=== PATIENT | male | born 1960 | race Caucasian/White ===

== ENCOUNTER 2021-12-05 09:56 | Observation (INO) ==
--- NOTE | 2021-11-20 13:41 | Anesthesiology Consultation ---
Date of Service November 20, 2021 Assessment & Plan (1) Encounter for pre-operative examination: Plan Outpatient joint eligibity: Case reviewed by Dr. Batista-Approvedfor outpatient joint pathway. - COVID screening: Per vulnerability assessment analyst on 11/20/2021: Travel screen negative, no known COVID-19 positive contacts or current COVID-19 related symptoms in past 2 weeks. Pt vaccinated. To surgeon's discretion if preop COVID testing needed. Chart Review Chart Review: Acceptable Risk for Surgery and Patient NOT seen in Pre Admission Testing History Surgery Operation Date: 12/05/21 12:45 Proposed Procedures p Left Total Hip Arthroplasty - Speedy Price MD Height/Weight Height: 6 ft 1 in Weight: 111.3 kg Allergies Allergy/AdvReac Type Severity Reaction Status Date / Time Sulfa (Sulfonamide Allergy Mild Rash Verified 07/03/18 07:00 Antibiotics) codeine AdvReac Mild Nausea Verified 10/13/21 11:40 Medications Home Medications Medication Instructions Recorded Confirmed Last Taken albuterol sulfate 90 mcg/actuation 1 puff inhalation Q6H PRN SOB 07/02/18 11/20/21 Unknown aerosol inhaler aspirin 81 mg tablet,delayed 81 mg PO QAM 07/02/18 11/20/21 06/30/18 release (Leonardo Low Dose Aspirin) atorvastatin 40 mg tablet (Lipitor) 40 mg PO HS 07/02/18 11/20/21 07/02/18 19:00 dexlansoprazole 60 mg 60 mg PO QAM 07/02/18 11/20/21 07/03/18 05:00 capsule,biphase delayed release (Dexilant) dorzolamide 22.3 mg-timolol 6.8 1 drp ophthalmic (eye) BID 07/02/18 11/20/21 Unknown mg/mL eye drops lisinopril 10 mg tablet 10 mg PO QPM 07/02/18 11/20/21 07/03/18 05:00 multivitamin 1 tab PO QAM 07/02/18 11/20/21 07/03/18 05:00 terazosin 1 mg capsule 1 mg PO HS 07/02/18 11/20/21 07/02/18 19:00 famotidine 20 mg chewable tablet 20 mg PO QAM 10/13/21 11/20/21 Unknown venlafaxine 75 mg capsule,extended 75 mg PO QAM 10/13/21 11/20/21 Unknown release 24 hr (Effexor XR) vitamins A,C,V-oozy-zkaayd 2,148 2 tab PO UD 10/13/21 11/20/21 Unknown mcg-113 mg-45 mg-17.4 mg tablet (PreserVision AREDS) alprazolam 0.25 mg tablet 0.25 mg PO BID PRN Anxiety 11/20/21 11/20/21 Unknown clobetasol 0.025 % topical cream 1 applic topical AMPM PRN Rash 11/20/21 11/20/21 Unknown latanoprost 0.005 % eye drops 1 drp ophthalmic (eye) HS 11/20/21 11/20/21 Unknown psyllium husk 3.4 gram/5.4 gram 1 tbsp PO QAM 11/20/21 11/20/21 Unknown oral powder (Metamucil) Past Medical History Medical History Anxiety Asthma well controlled, stable per pt-last rescue inhaler use 07/2021 Barretts esophagus Cancer LEFT RENAL CANCER s/p nephrectomy, no chemo or radiation Chronic back pain Degenerative disc disease GERD (gastroesophageal reflux disease) controlled, stable per pt Glaucoma BILATERAL Hiatal hernia History of COVID-19 07/2021 home test- neg- positive body aches, sinus congestion, slight fever- no current issues- no hospitalization Hyperlipidemia Hypertension controlled, stable per pt Pancreatic cyst follows with [facility], MRI surveillance due July 2022 per records Pancreatitis ~5 YEARS AGO Psoriasis Past Family History Family History Grandmother Family hx of colon cancer Past Surgical History Surgical History History of colonoscopy History of esophagogastroduodenoscopy (EGD) History of nasal septoplasty History of nephrectomy ROBOTICALLY REMOVED LEFT KIDNEY; follows w/ [facility]- 07/2021 S/P eye surgery infant and tear duct sx approx 15 yrs ago S/P trigger finger release x 2 R Social History Smoking Status: Never smoker Do You Dip or Chew Tobacco: No Hx Alcohol Use: No Hx Substance Use: No substance use type: does not use Lab Results Anesthesia Preop Results Results Anesthesia Widget: WBC 6.14 K/ul (4.8-10.8) 10/18/21 Hgb 14.1 g/dl (14.0-18.0) 10/18/21 Hct 41.6 % (40.1-51.0) 10/18/21 Plt 153 K/uL (130-400) 10/18/21 Na 139 mmol/L (136-145) 10/18/21 K 3.7 mmol/L (3.5-5.1) 10/18/21 Cl 105 mmol/L (98-107) 10/18/21 CO2 26 mmol/L (21-32) 10/18/21 BUN 16 mg/dl (6-23) 10/18/21 Creat 1.17 mg/dl (0.6-1.4) 10/18/21 Glucose Level 95 mg/dl (70-99(Fasting)) 10/18/21 PT 10.6 Seconds (9.0-12.0) 10/18/21 PTT 25.1 Seconds (21.0-31.0) 10/18/21 INR 1.0 (0.9-1.1) 10/18/21 Blood Type B Positive 10/18/21 Antibody Screen NEGATIVE 10/18/21 Testing Electrocardiogram Date: 10/18/21 NSR, rate 65 bpm Chest X-Ray Date: 10/18/21 There is suggestion of a hiatal hernia. No lines and tubes are seen. The cardiomediastinal silhouette is normal. The lungs are clear. No evidence of pleural effusion or pneumothorax. IMPRESSION: No acute chest disease. Stress Test Date: 05/17/15 Dobutamine MPHR 106% Negative for inducible ischemia EF 60-65% Grade I diastolic dysfunction No significant valvular pathology
--- NOTE | 2021-12-02 13:37 | History and Physical Report ---
DATE OF ADMISSION: 12/05/2021 CHIEF COMPLAINT: Persistent left hip pain and discomfort. HISTORY OF PRESENT ILLNESS: A 61-year-old fairly active gentleman who presents for surgical treatment of his left hip. He has about a several-year history of gradually increasing left hip pain and discomfort, which has been managed at [facility]. He had 2 intra-articular injections, the first one helped quite a bit, the last one was less successful. He describes lateral hip pain, groin pain, thigh pain radiating down to his knee. He limps more as the day goes on. He has nighttime pain. He would like to have his hip fixed. PAST MEDICAL HISTORY: 1. Hypertension. 2. Elevated cholesterol. 3. Asthma. 4. Gastroesophageal reflux disease. 5. Hiatal hernia. 6. Moderate obesity with BMI of 34. 7. History of kidney cancer, status post nephrectomy with a single kidney remaining. PAST SURGICAL HISTORY: Includes: 1. Nephrectomy. 2. Eye surgery. 3. Trigger finger surgery. 4. Cataract surgery. ALLERGIES: CODEINE, WHICH CAUSES NAUSEA. ALSO, DESCRIBES ALLERGIES TO BACTRIM. CURRENT MEDICATIONS: Include: 1. Atorvastatin. 2. Dexilant. 3. Timolol eye drops. 4. Trazodone. 5. Lisinopril. 6. Latanoprost. 7. Effexor. SOCIAL HISTORY: Significant for a 61-year-old male. He is . is a nurse. He does not smoke. No alcohol intake. FAMILY HISTORY: Noncontributory. REVIEW OF SYSTEMS: Negative for diabetes. No chest pain or shortness of breath. No history of DVT or PE. He does only have a single kidney due to nephrectomy. PHYSICAL EXAMINATION: GENERAL: Shows a pleasant middle-aged male. Looks to be in pretty good health. HEENT: Benign. NECK: Supple. No lymphadenopathy. LUNGS: Clear to auscultation. HEART: Has a regular rate and rhythm. ABDOMEN: Soft, nontender, nondistended. EXTREMITIES: Grossly neurovascularly intact except as follows: Examination of the left hip reveals the patient walks with a bit of a limp. He may be 0.5 cm short on this side compared to the opposite side. He has got a very stiff hip with internal rotation of maybe 5 degrees at best. Negative straight leg raise. No knee effusion. X-RAYS: X-rays of the left hip were reviewed. It shows advanced left hip arthritis. He has got complete loss of his superior joint space. Not a lot of osteophyte formation. ASSESSMENT: A 61-year-old male with a several-year history of increasing left hip pain and discomfort consistent with advanced arthritis. He has failed conservative measures. He really cannot take non-steroidal anti-inflammatory drugs due to a single kidney. PLAN: We are going to proceed with left total hip replacement. The risks and benefits of this procedure were explained to the patient and include but not limited to DVT, PE, , infection, neurological injury, vascular injury, bleeding problem, pain, limited range of motion, stiffness, fracture, incomplete relief of symptoms, etc. The patient understands and desires to proceed. Informed consent was obtained. We will likely use some Toradol, but we will have to be careful due to his single kidney. He is planning to be discharged to home using [facility] program. Job ID: [id number] [facility]
[~2021-12-05 09:56] MED LIST: ACETAMINOPHEN 500 MG TAB PO SCH; BUPIVACAINE 0.5 % 5 MG/1 ML PF 10ML VIAL ONE; CeleBREX 200 MG CAP PO SCH; FAMOTIDINE 20 MG TAB PO SCH; LR 60ML/HR IV SCH; METOCLOPRAMIDE HCL 10 MG TABLET PO SCH; MIDAZOLAM HCL 1 MG/ML 2ML VIAL ONE; Scopolamine 1 MG TDSY TD SCH; TRANEXAMIC ACID 1,000 MG **IV Pre-op IV SCH; [UNRECOGNIZED DRUG - REMARK] SCH; ceFAZolin 2000MG 2,000 MG/15 ML SYR IV SCH; fentaNYL citrate 100 MCG/2 ML VIAL ONE
[2021-12-05] MEDS ORDERED: LR 500ML BOLUS, THEN 15ML/HR IV SCH (10:30)
--- NOTE | 2021-12-05 10:46 | History & Physical Bridge Note ---
Date of Service December 05, 2021 History & Physical Bridge Note I have examined the patient, reviewed the History & Physical and in the interval since the performance of the History & Physical I have noted the following changes of clinical significance: no changes noted
[2021-12-05] MEDS ORDERED: BUPIVACAINE 0.5 % 5 MG/1 ML MPF 30ML VIAL ONE (12:13)
[2021-12-05] MEDS ORDERED: EPINEPHrine INJ 1 MG/ML AMP ONE (12:14)
[2021-12-05] MEDS ORDERED: LIDOCAINE 2% MPF LOCAL 5 ML VIAL INFIL ONE (12:39)
[2021-12-05] MEDS ORDERED: ONDANSETRON INJ 2 MG/ML 2 ML VIAL ONE (12:39)
[2021-12-05] MEDS ORDERED: PROPOFOL IV EMULSION 10 MG/ML 20 ML VIAL IV ONE ×2 (12:39→13:46)
--- NOTE | 2021-12-05 14:12 | Operative Report ---
PG Post Operative Report Pre & Post Diagnosis Operation Date: 12/05/21 12:45 Pre-Op Diagnosis: Left HIp advanced osteoarthritis Post-Op Diagnosis: Left HIp advanced osteoarthritis I identified the patient and participated in the time-out.: Yes Procedure Operation Date: 12/05/21 12:45 Actual Procedures p Left Total Hip Arthroplasty(Left) - Speedy Price MD Surgeon Speedy Price MD Medical Case Manager Eleuterio De Leon PA-C Estimated Blood Loss 200 Findings Consistent with Post-Op Diagnosis Operative findings real advanced left hip DJD. He had grade 4 [id number] disease of the femoral head and acetabulum. Moderate-sized joint effusion. Some anterior acetabular osteophytes. Specimens Left femoral head sent for pathology Drains None Anesthesia Type Spinal MAC Complications none Disposition Accompanied Patient To Recovery: No Indications Patient is a 61-year-old fairly active gentleman has had several year history of increased left hip pain discomfort gradually progressed over time. He failed conservative measures. X-rays show advanced left hip arthritis. He elected proceed with surgical treatment. Description of Procedure Operative implants consist of: 1 Biomet G7 size 56 mm acetabular shell. 2. [place] hole public relations professional. 3. 6.5 cancellous acetabular screws 1 of 35 mm length 125 mm length. 4. Highly cross-linked polyethylene liner with a 56 mm outer diameter and 36 mm inner diameter. 5. DePuy [place] size 12 KLA femoral stem. 6. +5/36 mm ceramic articular ball. The patient was taken the operating, identified, and placed on the operating table supine position protectors were properly padded. IV antibiotics tried by anesthesia team. Spinal anesthetic been employed in the holding area. Sotomayor cath was placed in sterile fashion. Patient then placed in the right lateral decubitus position. An axillary roll was placed. A Stulberg hip positioner was used for positioning. The left hip and leg were then prepped and draped in usual sterile fashion. A posterolateral approach to the left hip was then performed through a curvilinear incision centered over the greater trochanter. Sharp dissection was carried through subcutaneous tissue down below the IT band gluteal fascia the IT band gluteal fascia was incised longitudinally in line with skin incision. The underlying greater bursa was excised. The piriformis and external rotators were tagged and taken off the posterior aspect of the hip joint capsule. Great care was taken throughout the procedure to protect the sciatic nerve at all times. A posterior capsulotomy was then performed leaving a large flap for later repair. Hip was internally rotated and dislocated. Femoral neck osteotomy cut was made with Final Cut 14 mm above the lesser trochanter. Femoral head was removed and sent for pathology. The femur was retracted anteriorly. Attention drawn the acetabulum. The acetabular labrum was excised. The pulmonary fat was excised. Sequential reaming the acetabular was then performed begin with size 45 and progressing up to a 55. I did reamed a little bit with a 56 reamer and then placed a 56 mm G7 acetabular shell in about 40 degrees lateral opening and 20 degrees of anteversion. It was fixed with two 6.5 cancellous acetabular screws. Some small anterior acetabular osteophytes were removed. A trial liner was placed. Attention drawn the femur. The proximal femur was entered with a OpenWhere cutter followed by canal finder. I broached beginning with a size 8 and progressing up to a 12. We got excellent fit and the 12. I did not think I could likely get the 13 down. We then trialed the hip and the +5 articular ball provide full stability and appropriate leg lengths. Of note, this patient did appear to have a long leg on the left than the right preoperatively. We did we could try an minimize any lengthening and even do a little shortening. The hip was then trialed and found to be stable. Attention drawn toward placing the permanent implants. All trial implants were removed. An apex hole public relations professional was placed. Highly cross-linked polyethylene liner was placed. A DePuy size 12 KLA femoral stem was impacted in position. +5/36 mm ceramic articular ball was placed. Hip was located once again found to be stable. Attention drawn toward closing. Wound was irrigated scopes also pulsatile wall solution. I injected locally with 60 cc of half percent Marcaine with epinephrine. Posterior capsule external rotators then repaired through drill holes in the posterior trochanter with #2 Tycron suture. The IT band gluteal fascia then closed #1 PDS suture in a running fashion. Subcutaneous tissue was then closed with 2 layers the deep layer #1 Vicryl suture subcutaneous tissues and 2-0 Dexon suture in a part intact. Skin was closed skin alma rosa. Leg was then cleaned and dried a sterile dressing was Xeroform, 4 x 4's, sterile ABD pad and foam tape was applied. Patient then transferred to the recovery room in stable condition. Patient tolerated procedure well and there were no complications. Eleuterio De Leon, my physician technical services assistant, was present for the entire procedure. His assistance was essential and required for appropriate patient positioning, prepping and draping, surgical exposure, performing the technical details of the operation, placement the implants, closure of the wound, and placement of the sterile bandage. I attest to the content of the Intraoperative Record and any orders documented therein. Any exceptions are noted below.
--- NOTE | 2021-12-05 14:31 | Anesthesiology Progress Note ---
Date of Service December 05, 2021 Anesthesia Post Procedure Vital Signs Vital Signs: Temp Pulse Resp BP Pulse Ox O2 Del Method 12/05/21 14:20 68 14 137/73 95 Room Air 12/05/21 14:10 80 16 128/75 97 Room Air 12/05/21 14:02 36.6 C 83 20 116/70 96 Room Air 12/05/21 10:28 36.8 C 98 H 20 141/94 H 97 Room Air Pain Intensity Left Hip: Pain Intensity: 0 Transfer of Care Handoff Completed per policy Notes Mental Status: alert / awake / arousable Patient Amnestic to Procedure: Yes Nausea / Vomiting: adequately controlled Pain: adequately controlled Airway Patency, RR, SpO2: stable & adequate BP & HR: stable & adequate Hydration State: stable & adequate Neuraxial Anesthesia: was administered and sensory block is resolving Anesthetic Complications: no major complications apparent
--- NOTE | 2021-12-05 14:36 | XRay Report ---
SINGLE VIEW PELVIS; SINGLE VIEW LEFT HIP CLINICAL HISTORY: Postoperative examination. FINDINGS: An AP portable view of the hips and pelvis with a crosstable lateral portable view of the l eft hip are obtained. A bipolar left hip arthroplasty is in near-anatomic alignment. At least 2 sing le cortical lag screws transfix the acetabular cup. No acute fracture is identified. There are expect ed postoperative changes overlying the left hip including skin clips, subcutaneous gas, and soft tiss ue swelling. A Sotomayor catheter is in place. Mild arthritic change is seen in the right hip. IMPRESSION: Expected postoperative findings status post left hip arthroplasty. No acute fracture is s een. ACT 112: Negative or not required by law. Electronically signed by: Mariano Epps M.D. 12/05/2021 2:34 PM
[2021-12-05] MEDS ORDERED: NALOXONE HCL 0.4 MG/1 ML VIAL/CARP IV PRN (16:27)
[2021-12-05] MEDS ORDERED: traMADol HCL 50 MG TABLET PO PRN (16:27)
[2021-12-05] MEDS ORDERED: ALPRAZolam 0.25 MG TABLET PO PRN (16:27)
[2021-12-05] MEDS ORDERED: METOCLOPRAMIDE HCL INJ 5 MG/ML 2 ML VIAL IV PRN (16:27)
[2021-12-05] MEDS ORDERED: ALUMINUM/MAGNESIUM SUSP 30 ML UDC PO PRN (16:27)
[2021-12-05] MEDS ORDERED: HYDROmorphone INJ 1 MG/ML SYRINGE IV PRN (16:27)
[2021-12-05] MEDS ORDERED: diphenhydrAMINE Capsule 25 MG CAP PO PRN (16:27)
[2021-12-05] MEDS ORDERED: bisacodyL 10 MG SUPP PR PRN (16:27)
[2021-12-05] MEDS ORDERED: ONDANSETRON INJ 2 MG/ML 2 ML VIAL IV PRN (16:27)
[2021-12-05] MEDS ORDERED: MAGNESIUM HYDROXIDE SUSP 30 ML UDC PO PRN (16:27)
[2021-12-05] MEDS ORDERED: ALBUTEROL HFA 8 GM INHALER INH PRN (16:27)
[2021-12-05] MEDS: SODIUM CHLORIDE 0.9% 1000ML 1,000 ML IV SCH (17:00)
[2021-12-05] MEDS: ASCORBIC ACID 500 MG TAB PO SCH (18:22)
[2021-12-05] MEDS: KETOROLAC 30 MG/ML VIAL IV SCH ×2 (18:22→23:25)
[2021-12-05] MEDS ORDERED: TRANEXAMIC ACID / 0.7% NACL 1,000 MG/100 ML BAG IV SCH (20:15)
[2021-12-05] MEDS: ceFAZolin 2000MG 2,000 MG/15 ML SYR IV SCH (20:41)
[2021-12-05] MEDS: ASPIRIN 81 MG ECTAB PO SCH (20:44)
[2021-12-05] MEDS: DORZOLAMIDE/TIMOLOL 22.3/6.8MG/ML 10 ML BTL OP SCH (20:46)
[2021-12-05] MEDS: DOCUSATE SODIUM 100 MG CAP PO SCH (20:51)
[2021-12-05] MEDS ORDERED: SENNA 8.6 MG TAB PO SCH (21:00)
[2021-12-05] MEDS ORDERED: DOCUSATE SODIUM/SENNA 50/8.6MG TAB PO SCH (21:00)
[2021-12-05] MEDS ORDERED: lisinopril 10 MG TAB PO SCH (21:00)
[2021-12-05] MEDS ORDERED: FAMOTIDINE 10 MG TABLET PO SCH (21:00)
[2021-12-05] MEDS ORDERED: LATANOPROST 0.005% OP SOLN 2.5 ML BTL OP SCH (21:00)
[2021-12-05] MEDS ORDERED: TERAZOSIN HCL 1 MG CAP PO SCH (21:00)
[2021-12-05] MEDS ORDERED: ATORVASTATIN 40 MG TAB PO SCH (21:00)
[2021-12-05] MEDS: ACETAMINOPHEN 500 MG TAB PO SCH (21:03)
[2021-12-05] MEDS: CLOBETASOL 0.025% SCH (23:25)
[2021-12-06] MEDS: SODIUM CHLORIDE 0.9% 1000ML 1,000 ML IV SCH (03:09)
[2021-12-06] MEDS: KETOROLAC 30 MG/ML VIAL IV SCH ×2 (05:12→11:54)
[2021-12-06] MEDS: ceFAZolin 2000MG 2,000 MG/15 ML SYR IV SCH (05:12)
[2021-12-06] MEDS: ACETAMINOPHEN 500 MG TAB PO SCH ×2 (05:12→13:29)
[2021-12-06 06:32] LABS: BUN Creatinine Ratio 14.4 (10-20); Calcium 8.5 mg/dl (8.5-10.1); Creatinine Clr Calc Pharmacy 85.4 ml/min; Est GFR (African American) 76.2 ml/min; Est GFR (Non-African American) 65.7 ml/min; Potassium 3.8 mmol/L (3.5-5.1)
[2021-12-06 06:36] LABS: Hematocrit (blood only) 39.2 % (40.1-51.0); Hemoglobin 13.4 g/dl (14.0-18.0); Mean Corpuscular Hgb Conc 34.2 g/dL (32.0-36.0); Mean Corpuscular Volume 87.9 fL (80.0-100.0); Mean Platelet Volume 10.4 fL (9.4-12.4); Platelet Count 128 K/uL (130-400); RDW Coefficient of Variation 12.9 % (11.5-14.5); RDW Standard Deviation 41.3 fL (36.4-46.3); Red Blood Count 4.46 M/uL (4.63-6.08); White Blood Count 8.58 K/ul (4.8-10.8)
[2021-12-06 06:52] LABS: Basophils # (auto) 0.02 K/uL (0-0.2); Basophils % (auto) 0.2 %; Eosinophils # (auto) 0.14 K/uL (0-0.50); Eosinophils % (auto) 1.6 %; Immature Granulocytes # (auto) 0.02 K/uL (0.00-0.02); Immature Granulocytes % (auto) 0.2 %; Lymphocytes # (auto) 1.03 K/uL (1.2-3.4); Monocytes % (auto) 8.2 %; Neutrophils # (auto) 6.67 K/uL (1.4-6.5); Neutrophils % (auto) 77.8 %; RBC Morphology Unremarkable
[2021-12-06] MEDS ORDERED: dexAMETHasone 10 MG in SYRINGE 0 ML IV SCH (08:00)
[2021-12-06] MEDS: DOCUSATE SODIUM 100 MG CAP PO SCH (08:28)
[2021-12-06] MEDS: ASPIRIN 81 MG ECTAB PO SCH (08:29)
[2021-12-06] MEDS: ASCORBIC ACID 500 MG TAB PO SCH (08:29)
[2021-12-06] MEDS: DORZOLAMIDE/TIMOLOL 22.3/6.8MG/ML 10 ML BTL OP SCH (08:38)
[2021-12-06] MEDS: CLOBETASOL 0.025% SCH (08:38)
[2021-12-06] MEDS ORDERED: FAMOTIDINE 20 MG TAB PO SCH (09:00)
[2021-12-06] MEDS ORDERED: VENLAFAXINE HCL XR 75 MG CAPXR PO SCH (09:00)
[2021-12-06] MEDS ORDERED: CETIRIZINE HCL 10 MG TABLET PO SCH (09:00)
[2021-12-06] MEDS ORDERED: MULTIVITAMIN TAB PO SCH ×2 (09:00)
[2021-12-06] MEDS ORDERED: CEROVITE ADV FORMULA TAB PO SCH (09:00)
[2021-12-06] MEDS ORDERED: TAMSULOSIN HCL 0.4 MG CAP PO SCH (09:00)
[2021-12-06] MEDS ORDERED: PANTOprazole 40 MG TAB PO SCH (09:00)
[2021-12-06] MEDS ORDERED: PSYLLIUM or GUAR GUM FIBER POWDER PACKET PO SCH (09:00)
--- NOTE | 2021-12-06 12:04 | Progress Notes ---
DATE OF SERVICE: 12/06/2021 SUBJECTIVE: A 61-year-old gentleman, postoperative day 1 from a left hip replacement. He is doing w ell. He did have one vasovagal episode earlier this morning when he first got up for the first time. This has gotten better. He is really well controlled pain-horvath. No chest pain or shortness of vani th. Not feeling dizzy or lightheaded. Hoping to go home. OBJECTIVE: VITAL SIGNS: Temperature is 36.7. Vital signs are stable. GENERAL: Shows a pleasant middle-aged male. He is sitting up at his bedside chair and looks quite c omfortable. LUNGS: Clear to auscultation. HEART: Has a regular rate and rhythm. ABDOMEN: Soft, nontender, nondistended. EXTREMITIES: Grossly neurovascularly intact except as follows: Examination of the left hip and leg reveals the dressing to be clean, dry and intact. The leg lengths were equal. Thigh is soft and sup ple. He is neurologically intact. LABORATORY DATA: Hemoglobin 13.4. Hematocrit 39.2. Electrolytes are stable. ASSESSMENT: A 61-year-old gentleman, postoperative day 1 from a left hip replacement, doing well. H is pain is controlled. Hip is located. He did have this vasovagal episode, but seems to be resolved and did well in therapy. PLAN: 1. DVT prophylaxis includes thigh-high TEDs, SCDs, and aspirin twice a day. 2. PT, OT, weightbear as tolerated. Left total hip protocol. 3. Pain control, doing okay with current pain regimen. 4. Disposition: Plan is to discharge to home with some home health later today if doing okay. Job ID: [id number]
[2021-12-06] MEDS ORDERED: Scopolamine CHECK PATCH PLACEMENT SCH (16:00)
--- NOTE | 2021-12-08 15:50 | Discharge Summary ---
Date of Service December 08, 2021 Discharge Data Procedures Performed Operation Date: 12/05/21 12:45 Actual Procedures p Left Total Hip Arthroplasty(Left) - Speedy Price MD Hospital Course (1) S/P total left hip arthroplasty: This is a 61 year old patient admitted on 12/05/21 and underwent total hip arthroplasty. He tolerated the procedure well and there were no complications. Transferred to the PACU post op and later to the orthopedic floor for further care. He was given ancef for antibiotic prophylaxis. He was also given LIBBY stockings, SCDs, and aspirin for DVT prophylaxis. Hemoglobin, hematocrit, and vital signs were monitored during his hospital stay and remained stable. Did not require any blood transfusions. There were no complications during his hospital stay. By post op day #1 the patient was tolerating a regular diet, pain was reasonably controlled with oral pain medicine, and he was participating in physical therapy. On post op day #1 the patient was discharged home and set up with home health care. He was given printed discharge instructions including prescriptions for extra strength tylenol, aspirin, toradol, zofran, senokot, flomax, and tramadol. Continue physical therapy, weight bearing as tolerated. Continue hip precautions. Continue LIBBY stockings. Follow up approximately 2 weeks post op or sooner if there are problems or concerns. Coding Level of Care Code None Diagnoses S/P total left hip arthroplasty Z96.642
== END 2021-12-06 13:55 | disposition home health service (06) ==
LOC: ASU 09:56 → PACUINP 09:56 → 3E 17:15